=== PATIENT | female | born 1970 | race Hispanic/Latino ===

== ENCOUNTER 2017-09-02 10:35 | Emergency (ER) | payer OTHER ==
[~2017-09-02] VITALS: Ht 160 cm; Wt 93.0 kg
--- NOTE | 2017-09-02 11:20 | ED INFLUENZA/URI COMPLAINT ---
History of Present Illness General Chief Complaint: Upper Respiratory Sx/Fever Stated Complaint: URI/FEVER Source: patient Exam Limitations: no limitations Vital Signs & Intake/Output Vital Signs & Intake/Output Vital Signs Date Time Temp Pulse Resp B/P B/P Pulse O2 O2 Flow FiO2 Mean Ox Delivery Rate 09/02 1228 96.5 92 18 171/101 96 Room Air 09/02 1120 Room Air 09/02 1052 96.7 97 15 157/100 98 Room Air Room Air Allergies Coded Allergies: No Known Allergies (09/02/17) Triage Note: PT TO ED FOR C/C OF PRODUCTIVE YELLOW COUGH WITH SUBJECTIVE FEVERS RELIEVED WITH MOTRIN, +CHILLS AND BODY ACHES. MID UPPER BACK PAIN THAT WORSE WITH DEEP BREATH. PT DID DRIVE HERE FROM [place] IN JULY. PT REPORTS GETTING SOB JUST TO TIE HER SHOE. Triage Nurses Notes Reviewed? yes Onset: Gradual Duration: constant Timing: recent history Severity: severe Severity Numbers: 7 HPI: Patient is a 47-year-old female who presents to emergency room with a four-day history of body aches chills nasal congestion cough and tactile fevers. No sick contacts at home No smoking history Denies any chest pain and arm pain jaw pain leg swelling hemoptysis (Sanjeev Mcnally) Reconcile Medications Albuterol Sulfate (Ventolin Hfa) 90 MCG HFA.AER.AD 2 PUF INH Q4-6 PRN PRN SHORTNESS OF BREATH Benzonatate (Tessalon Perle) 100 MG CAPSULE 1 CAP PO TID PRN COUGH Codeine Phosphate/Guaifenesi (Cheratussin AC Syrup) 10 MG-100 MG/5 ML LIQUID 10 ML PO BID PRN COUGH DO NOT OPERATE MOTOR VEHICLES WITH MEDICATION Codeine Phosphate/Guaifenesi (Cheratussin AC Syrup) 10 MG-100 MG/5 ML LIQUID 10 ML PO BID PRN COUGH DO NOT OPERATE MOTOR VEHICLES WITH MEDICATION Fluticasone Propionate (Flonase Allergy Relief) 50 MCG/ACTUATION SPRAY.SUSP 2 SPRAY CUONG DAILY PRN CONGESTION (Petey aSnabria DO) Past History Travel History Traveled to [place] past 21 day No Medical History Any Pertinent Medical History? 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 No (Sanjeev Mcnally) Review of Systems Review of Systems Constitutional: Reports: see HPI, chills, fever. EENTM: Reports: see HPI, nasal congestion. Respiratory: Reports: see HPI, cough. Cardiovascular: Reports: no symptoms. GI: Reports: no symptoms. Genitourinary: Reports: no symptoms. Musculoskeletal: Reports: see HPI, joint pain. Skin: Reports: see HPI. Neurological/Psychological: Reports: see HPI, headache. Hematologic/Endocrine: Reports: no symptoms. Immunologic/Allergic: Reports: no symptoms. All Other Systems: Reviewed and Negative (Sanjeev Mcnally) Physical Exam Physical Exam General Appearance: no apparent distress, mild distress Head: atraumatic Eyes: Bilateral: normal appearance, PERRL, EOMI. Ears, Nose, Throat: moist mucous membrane, hearing grossly normal, Tympanic normal, pharynx normal, nasal congestion Neck: normal inspection, supple Respiratory: normal breath sounds, chest non-tender, no respiratory distress Cardiovascular: regular rate/rhythm Peripheral Pulses: 2+ radial (R) Gastrointestinal: normal bowel sounds, soft, non-tender Extremities: normal inspection, no edema Neurologic/Psych: no motor/sensory deficits, awake, alert, oriented x 3, normal gait Skin: intact, normal color, warm/dry Core Measures Sepsis Present: No Sepsis Focused Exam Completed? No (Sanjeev Mcnally) Progress Differential Diagnosis: influenza, meningitis, neutropenia, otitis, pneumonia, pharyngitis, sinusitis Plan of Care: Orders Procedure Date/time Status RAPID VIRAL INFLUENZA A 09/02 1056 Complete VIRAL CULTURE 09/02 1056 Active Laboratory Tests 09/02/17 1056: Virus Culture Pending Microbiology 09/02 1100 NASOPHARYN: Influenza Virus A & B Rapid Smear - COMP INFLUENZA TYPE A Patient on initial presentation was noted to have a dry cough patient was afebrile clear lungs auscultation and has positive influenza, No respiratory distress Patient will be treated for concerns of influenza A discussed disposition plan with patient who agrees and has no questions Initial ED EKG: none (Sanjeev Mcnally) Departure Departure Disposition: HOME OR SELF CARE Condition: Stable Clinical Impression Primary Impression: Influenza A Additional Instructions: As discussed begin drinking plenty of water for hydration, begin over-the- counter ibuprofen for body aches begin Tylenol for fevers, begin a prescription for Cheratussin and Tessalon Perles for cough begin the prescription of Ventolin for shortness of breath and Nasonex for nasal congestion, begin [id number] Sudafed for congestion. Prescriptions waiting at [facility]. If no better in 2 days follow-up with her primary care doctor. If symptoms worsen return to emergency room. Departure Forms: Customer Survey General Discharge Information (Sanjeev Mcnally) Departure Prescriptions: Current Visit Scripts Benzonatate (Tessalon Perle) 1 CAP PO TID PRN COUGH #15 CAP Codeine Phosphate/Guaifenesi (Cheratussin AC Syrup) 10 ML PO BID PRN COUGH #100 ML DO NOT OPERATE MOTOR VEHICLES WITH MEDICATION Albuterol Sulfate (Ventolin Hfa) 2 PUF INH Q4-6 PRN PRN SHORTNESS OF BREATH #1 INHAL Fluticasone Propionate (Flonase Allergy Relief) 2 SPRAY CUONG DAILY PRN CONGESTION #1 BOT Codeine Phosphate/Guaifenesi (Cheratussin AC Syrup) 10 ML PO BID PRN COUGH #100 ML DO NOT OPERATE MOTOR VEHICLES WITH MEDICATION PA/PORT TRAFFIC MANAGER Co-Sign Statement Statement: ED Attending supervision documentation- [] I saw and evaluated the patient. I have also reviewed all the pertinent lab results and diagnostic results. I agree with the findings and the plan of care as documented in the PA's/PORT TRAFFIC MANAGER's documentation. [X] I have reviewed the ED Record and agree with the PA's/PORT TRAFFIC MANAGER's documentation. [] Additions or exceptions (if any) to the PAs/PORT TRAFFIC MANAGER's note and plan are summarized below: [] (Petey Sanabria DO
[2017-09-02] MEDS ORDERED: VENTOLIN HFA18 GM INH (12:02)
[2017-09-02] MEDS ORDERED: TESSALON PERLE100 M1 PO (12:02)
[2017-09-02] MEDS ORDERED: CHERATUSSIN AC118 M1 PO ×2 (12:02→12:38)
[2017-09-02] MEDS ORDERED: FLONASE ALLERG9.9 ML NAS (12:02)
[2017-09-02 12:28] VITALS: BP 171/101
== END 2017-09-02 12:39 ==
LOC: ERH 10:35
DX: J10.1 Influenza due to other identified influenza virus with other respiratory manifestations (principal)
CPT/HCPCS: 87804; 87804-59